=== PATIENT | male | born 1970 ===

== ENCOUNTER 2018-11-30 11:10 | Day surgery (SDC) | payer MEDICAID ==
[2018-11-12 16:19] VITALS: BMI 29.1
[~2018-11-30 11:10] MED LIST: Carbachol 0.01% IO ONE; Chondroitin/Hyaluronate Opth Syringe KIT (0.55 ml-0.5 ml) IO ONE; Ciprofloxacin 0.3% OPTH SOLN OS SCH; Cyclopentolate 1% Opth (2 ml) OS SCH; Ketorolac Tromethamine 0.5% Opth Soln (3 ml) OS SCH; Lactated Ringer's 500 ML IV ONE; Lidocaine 2% MPF (5 ml) Inj ONE; Phenylephrine 2.5% Opht Soln OS SCH; Povidone Iodine Ophthalmic 5% Soln ONE; Tobramycin/Dexamethasone (Tobradex) Opth Sol (2.5 ml) ONE; Tobramycin/Dexamethasone OPHT OINT ONE; Tropicamide 0.5% Opht Sol OS SCH
[2018-11-30] MEDS ORDERED: Tropicamide 1% Opht SOLUTION OS STA (12:31)
[2018-11-30] MEDS ORDERED: Lactated Ringer's 500 ML IV ONE (12:45)
[2018-11-30 13:22] LABS: CALCIUM 8.2 mg/dl (8.6-10.4)
[2018-11-30] MEDS ORDERED: Propofol 10 mg/ml Inj (20 ML) ONE (14:46)
[2018-11-30] MEDS ORDERED: Chondroitin/Hyaluronate 40 mg/ml-30 mg/ml Ophth Syringe (0.5 ml) IO ONE (15:22)
[2018-11-30 17:17] VITALS: BP 148/70; PULSE 83; RESP 16; TEMP 97.6; O2SAT 98
--- NOTE | 2018-12-05 21:13 | OP ---
PROCEDURE DATE: 11/30/2018 PREOPERATIVE DIAGNOSIS: Cataract of the left eye. POSTOPERATIVE DIAGNOSIS: Cataract of the left eye. OPERATIVE PROCEDURE: Cataract extraction with implant of the left eye. SURGEON: Juvenal Michelle MD ANESTHESIA: Local, standby. COMPLICATIONS: None. DESCRIPTION OF PROCEDURE: Operative report is as follows: The patient was brought to the operating room where local anesthesia were achieved using a peribulbar block and 3 mL of 1% lidocaine with epinephrine. The patient was then prepped and draped in the usual sterile fashion for surgery of the left eye. A lid speculum was placed and a sideport incision was created. Trypan blue dye was used to stain the anterior capsule as the cataract was dense and a primary incision was made. Viscoelastic was used to fill the anterior chamber. A capsular access was being performed and an extension of the capsular access for the periphery of the lens the capsular access and, therefore, a complete capsular access was not possible. A cystotome was used to finish the capsulotomy in a can houseman style fashion. Gentle hydrodissection of the nucleus was performed and removal of the nucleus using phacoemulsification was performed without difficulty. Cortical cleanup was achieved without difficulty as well. A viscoelastic was used to fill the capsular bag. A three-piece intraocular lens was then placed into the eye using the invoice coder and once inside the eye, it was apparent that the superior aspect was damaged and could not return to its proper position in order to support the implant. The wound was enlarged and the intraocular lens was removed from the eye. A second intraocular lens was placed into the eye without the use of the invoice coder and was placed into the sulcus and easily centered. Viscoelastic was aspirated from the eye. The wound was closed using four 10-0 nylon sutures. Miochol was instilled with good symmetric pupillary constriction. The wounds at the sideport was hydrated. The chamber was deep and the TobraDex-soaked collagen shield was placed over the eye. The lid speculum was removed. TobraDex ointment was placed onto the eye. Patch and shield were placed over the eye and the patient was taken from the operative room in excellent condition. Juvenal Michelle MD
== END 2018-11-30 16:50 | disposition home or self-care (01) ==
LOC: C.SDS 11:10
PROVIDERS: ATTEND Ophthalmology
DX: H25.12 Age-related nuclear cataract, left eye (principal)
CPT/HCPCS: 36415; 66984; 80048; 82948; J2704; J7120; V2632